=== PATIENT | male | born 1990 | race Caucasian/White ===

== ENCOUNTER 2017-01-14 10:42 | Emergency (ER) | payer OTHER | END 2017-01-14 12:24 | disposition home or self-care (01) | LOC: FER 10:42 | DX: S16.1XXA Strain of muscle, fascia and tendon at neck level, initial encounter (principal); S29.012A Strain of muscle and tendon of back wall of thorax, initial encounter; F17.210 Nicotine dependence, cigarettes, uncomplicated; V89.2XXA Person injured in unspecified motor-vehicle accident, traffic, initial encounter; Y92.410 Unspecified street and highway as the place of occurrence of the external cause | CPT/HCPCS: 72040; 72072; 72100; J1885 ==

== ENCOUNTER 2021-11-16 04:16 | Emergency (ER) | payer OTHER ==
[2021-11-16 05:10] LABS: BASOPHIL 1.1 % (0-2); EOSINOPHIL 6.6 % (0-5); HGB 17.4 g/dl (13.2-18.0); LYMPHOCYTE 49.2 % (15-48); MCH 31.6 pg (25.0-31.0); MCHC 34.1 g/dL (32.0-36.0); MCV 92.6 fL (78.0-100.0); MONOCYTE 10.1 % (0-12); MPV 9.9 fL (6.0-9.5); NEUTROPHIL 32.6 % (41-80); NRBC 0; PLT 230 K/uL (150-400); RBC 5.51 M/uL (4.70-6.00); RDW 12.3 % (11.5-14.0); WBC 5.5 K/uL (4.0-10.5)
[2021-11-16 05:22] LABS: INR 1.01 (0.9-1.2); PROTHROMBIN TIME 12.7 SECONDS (11.8-13.4)
[2021-11-16 05:23] LABS: PTT 29.8 SECONDS (24.4-34.7)
[2021-11-16 05:29] LABS: ALBUMIN 3.9 g/dL (3.4-5.0); BILIRUBIN - TOTAL 0.2 mg/dL (0.2-1.0); BUN/CREAT RATIO (CALC) 21.6 RATIO; CREATININE 0.74 mg/dL (0.67-1.17); GLOBULIN (CALCULATION) 3.3 g/dL; POTASSIUM 3.9 mmol/L (3.5-5.1); TOTAL PROTEIN 7.2 g/dL (6.4-8.2)
[2021-11-16 06:17] LABS: INFLUENZA A NAA NEGATIVE (NEGATIVE)
[2021-11-16 06:43] LABS: CORONAVIRUS 2019 SARS-COV-2 POSITIVE (NEGATIVE)
[2021-11-16] MEDS ORDERED: NAPROXEN500 MG PO (08:19)
== END 2021-11-16 09:34 | disposition home or self-care (01) ==
LOC: FER 04:16
PROVIDERS: Emergency Medicine Emergency Medical Services
DX: U07.1 COVID-19 (principal); R07.89 Other chest pain; M94.0 Chondrocostal junction syndrome [Tietze]; F17.210 Nicotine dependence, cigarettes, uncomplicated
CPT/HCPCS: 36415; 71045; 80053; 83880; 84484; 85025; 85379; 85610; 85730; 93005; J1885; J2270; J2405; U0002